=== PATIENT | male | born 1975 | race Caucasian/White ===

== ENCOUNTER 2019-10-14 19:36 | Emergency (ER) | payer SELFPAY ==
--- NOTE | ~2019-10-14 | XR_ITS ---
XR hand LT min 3V, XR wrist RT min 3V 10/14/2019 20:31 Indication: Left hand and right wrist pain after dog bite Procedure: 3 views left hand the 4 views right wrist Comparison: No prior studies for comparison. Findings: There is an old deformity of the left fifth distal phalanx. There is suggestion of soft tis nora laceration overlying the left first distal phalanx with small foreign body at the base of the dis wade phalanx. No acute fracture or traumatic malalignment. Scaphoid intact. Impression: 1: Tiny foreign body in the soft tissues overlying the left first distal phalanx. 2: No acute fracture. Reviewed, dictated and finalized at location A. Impression: 1: Tiny foreign body in the soft tissues overlying the left first distal phalan x. 2: No acute fracture. Impression: 1: Tiny foreign body in the soft tissues overlying the left first distal phalan x. 2: No acute fracture.
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
[2019-10-14 19:39] VITALS: BP 150/82; PULSE 96; RESP 20; TEMP 36.4; O2SAT 96
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
[2019-10-14 20:50] LABS: Basophils Absolute Auto 0.1 K/mm3 (0.0-0.1); Basophils Percent Auto 0.4 % (0.2-1.2); Eosinophils Absolute Auto 0.3 K/mm3 (0-0.3); Eosinophils Percent Auto 2.2 % (0-4.4); Hematocrit 42.1 % (42.0-52.0); Hemoglobin 13.8 g/dL (14.0-18.0); Immature Granulocyte Absolute 0.03 K/mm3 (0.00-0.031); Immature Granulocyte Percent A 0.3 % (0-0.5); Lymphocytes Absolute Auto 3.46 K/mm3 (0.9-3.2); Lymphocytes Percent Auto 30.9 % (18.3-44.2); Mean Corpuscular HGB Conc 32.8 g/dl (32-36); Mean Corpuscular Hemoglobin 29.2 pg (26-34); Mean Corpuscular Volume 89.2 fl (80-100); Mean Platelet Volume 9.2 fl (7.4-10.4); Monocytes Absolute Auto 1.1 K/mm3 (0.1-0.6); Monocytes Percent Auto 9.7 % (2.6-8.5); Neutrophils Absolute Auto 6.3 K/mm3 (1.3-6.7); Neutrophils Percent Auto 56.5 % (45.5-73.1); Platelet Count Result 285 k/mm3 (150-375); Red Blood Count 4.72 M/mm3 (4.6-6.20); Red Cell Distribution Width 12.3 % (11.5-14.5); White Blood Count 11.2 K/mm3 (4.5-10.0)
[2019-10-14 21:02] LABS: Blood Urea Nitrogen 15 mg/dL (9-20); Calcium 8.7 mg/dL (8.4-10.2); Carbon Dioxide 31 mmol/L (22-30); Chloride 102 mmol/L (98-107); Estimated CRCL calculation 78 ml/min; Estimated Glomerular Filt Rate > 60; Glucose 96 mg/dL (75-110); Sodium 139 mmol/L (137-145)
[2019-10-14] MEDS: MORPHINE SULFATE 4 MG/ML INJ IV PUSH (21:02)
[2019-10-14 21:04] VITALS: BP 124/83; PULSE 89; RESP 20; O2SAT 100
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
[2019-10-14 21:30] VITALS: BP 124/83; PULSE 83; O2SAT 95
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
--- NOTE | 2019-10-14 22:19 | PC.NURSE ---
Pt has lacerations and wounds in multiple area around both lowers arms and around right wrist, left thumb has lacerations. right eye is black.
[2019-10-14 22:33] VITALS: O2SAT 98
== END 2019-10-14 22:07 | disposition home or self-care (01) ==
PROVIDERS: Emergency Provider Emergency Medicine
DX: S41.151A Open bite of right upper arm, initial encounter (principal); S41.152A Open bite of left upper arm, initial encounter; S00.11XA Contusion of right eyelid and periocular area, initial encounter; Y35.813A Legal intervention involving manhandling, suspect injured, initial encounter; W54.0XXA Bitten by dog, initial encounter
CPT/HCPCS: 36415; 70486; 73110; 73130; 80048; 85025; 96374; 99284; J2270

== ENCOUNTER 2020-12-17 22:54 | Emergency (ER) | payer OTHER, SELFPAY ==
[2020-12-17 23:00] VITALS: BP 156/100; PULSE 97; RESP 20; TEMP 36.7; O2SAT 98
[2020-12-18] MEDS: CLINDAMYCIN 600 MG/D5W 50 ML 600 MG/50 ML PIGGYBACK 100 MG IVPB (00:23)
--- NOTE | 2020-12-18 00:24 | ED.GENADULT ---
HPI - General Adult General Chief complaint: Skin/Abscess/Foreign Body Stated complaint: spider bite left hand Time Seen by Provider: 12/17/20 23:31 History of Present Illness HPI narrative: Patient 45-year-old gentleman who presents the emergency department with chief complaint of spider bite to left hand. Patient reports that he was bit by a spider several days ago was seen in urgent care and had his prescription sent to a [facility] patient states that every time he is attempted to go to the pharmacy has been closed and has not been taking any antibiotics. The patient denies fever but noticed that his hand has become progressively more swollen and red. Patient states that it is tender to palpation reports no fluctuance to the area denies lymphangitic streaking. Related Data Allergies Allergy/AdvReac Type Severity Reaction Status Date / Time No Known Allergies Allergy Mild Verified 12/17/20 23:06 Review of Systems Review of Systems: Narrative: A 10 system review of systems was completed on the patient and is negative except for what is stated in the HPI. Nursing and ancillary documentation was reviewed. [facility] Past Medical History Medical History No pertinent past medical history Surgical History Surgical History History of tonsillectomy Social History Social History Smoking status: Current every day smoker Gender identity (if verbalized by the patient): Male Exam Narrative: Exam Narrative: GENERAL: Well-appearing, well-nourished, and in no acute distress. HEAD: Normocephalic, atraumatic. EYES: PERRLA and EOMI. ENT: Nares clear, no rhinorrhea or epistaxis. Mucous membranes moist. NECK: Supple. CHEST: Clear to auscultation. No respiratory distress. HEART: Regular rate and rhythm. No murmur heard. Normal peripheral pulses. ABDOMEN: Soft, nontender, nondistended, normal active bowel sounds. EXTREMITIES: Normal range of motion. No edema. There is redness to the dorsum of the left hand there is no swelling of the fingers there is full range of motion of the hand there is no fluctuance present. SKIN: Warm, dry, no rash. NEURO: No focal deficits. Alert and oriented x3. PSYCH: Normal mood and affect. Course Vital Signs Vital signs: Vital Signs Temperature 36.7 C 12/17/20 23:00 Pulse Rate 97 12/17/20 23:00 Respiratory Rate 20 12/17/20 23:00 Blood Pressure 156/100 H 12/17/20 23:00 Pulse Oximetry 98 12/17/20 23:00 Temperature 36.7 C 12/17/20 23:00 Pulse Rate 86 12/18/20 00:47 Respiratory Rate 18 12/18/20 00:47 Blood Pressure 135/98 H 12/18/20 00:47 Pulse Oximetry 98 12/18/20 00:47 Medical Decision Making Vital Signs Vital Signs: Vital Signs Temperature 36.7 C 12/17/20 23:00 Pulse Rate 97 12/17/20 23:00 Respiratory Rate 20 12/17/20 23:00 Blood Pressure 156/100 H 12/17/20 23:00 Pulse Oximetry 98 12/17/20 23:00 Temperature 36.7 C 12/17/20 23:00 Pulse Rate 86 12/18/20 00:47 Respiratory Rate 18 12/18/20 00:47 Blood Pressure 135/98 H 12/18/20 00:47 Pulse Oximetry 98 12/18/20 00:47 Lab Data Result diagrams: 12/18/20 00:15 12/18/20 00:15 Labs: Lab Results 12/18/20 12/18/20 12/18/20 Range/Units 00:15 00:15 00:15 WBC 13.4 H (4.5-10.0) K/mm3 RBC 5.03 (4.6-6.20) M/mm3 Hgb 14.6 (14.0-18.0) g/dL Hct 43.9 (42.0-52.0) % MCV 87.3 (80-100) fl MCH 29.0 (26-34) pg MCHC 33.3 (32-36) g/dl RDW 12.6 (11.5-14.5) % Plt Count 292 (150-375) k/mm3 MPV 9.5 (7.4-10.4) fl Immature Gran % (Auto) 0.4 (0-0.5) % Neut % (Auto) 54.3 (45.5-73.1) % Lymph % (Auto) 33.3 (18.3-44.2) % Howard % (Auto) 9.7 H (2.6-8.5) % Eos % (Auto) 1.9 (0-4.4) % Baso % (Auto) 0.4
[2020-12-18 00:25] LABS: Basophils Absolute Auto 0.1 K/mm3 (0.0-0.1); Basophils Percent Auto 0.4 % (0.2-1.2); Eosinophils Absolute Auto 0.3 K/mm3 (0-0.3); Eosinophils Percent Auto 1.9 % (0-4.4); Hematocrit 43.9 % (42.0-52.0); Hemoglobin 14.6 g/dL (14.0-18.0); Immature Granulocyte Absolute 0.05 K/mm3 (0.00-0.031); Immature Granulocyte Percent A 0.4 % (0-0.5); Lymphocytes Absolute Auto 4.45 K/mm3 (0.9-3.2); Lymphocytes Percent Auto 33.3 % (18.3-44.2); Mean Corpuscular HGB Conc 33.3 g/dl (32-36); Mean Corpuscular Volume 87.3 fl (80-100); Mean Platelet Volume 9.5 fl (7.4-10.4); Monocytes Absolute Auto 1.3 K/mm3 (0.1-0.6); Monocytes Percent Auto 9.7 % (2.6-8.5); Neutrophils Absolute Auto 7.3 K/mm3 (1.3-6.7); Neutrophils Percent Auto 54.3 % (45.5-73.1); Platelet Count Result 292 k/mm3 (150-375); Red Blood Count 5.03 M/mm3 (4.6-6.20); Red Cell Distribution Width 12.6 % (11.5-14.5); White Blood Count 13.4 K/mm3 (4.5-10.0)
[2020-12-18] MEDS: KETOROLAC 30 MG/ML VIAL (*BKC) IV PUSH (00:32)
[2020-12-18 00:34] LABS: Lactic Acid Reflex 0.8 mmol/L (0.7-2.1)
[2020-12-18] MEDS: MORPHINE SULFATE (*CRX) 4 MG/ML INJ IV PUSH (00:34)
[2020-12-18 00:36] LABS: Alanine Aminotransferase 53 U/L (4-50); Albumin Level 4.7 g/dL (3.5-5.1); Alkaline Phosphatase 96 U/L (38-126); Anion Gap 12 mmol/L (8-16); Aspartate Amino Transferase 53 U/L (17-59); Bilirubin,Total 0.6 mg/dL (0.2-1.3); Blood Urea Nitrogen 15 mg/dL (9-20); Calcium 9.9 mg/dL (8.4-10.2); Carbon Dioxide 26 mmol/L (22-30); Chloride 106 mmol/L (98-107); Estimated CRCL calculation 51 ml/min; Estimated Glomerular Filt Rate 44; Glucose 90 mg/dL (75-110); Potassium 4.2 mmol/L (3.4-5.0); Sodium 144 mmol/L (137-145)
[2020-12-18 00:47] VITALS: BP 135/98; PULSE 86; RESP 18; O2SAT 98
[2020-12-18] MEDS: SODIUM CHLORIDE 0.9% IV 1,000 ML 999 ML IV CONT (00:48)
[2020-12-18 01:19] VITALS: BP 145/88; PULSE 83; RESP 18; TEMP 37.1; O2SAT 98
== END 2020-12-18 01:16 | disposition home or self-care (01) ==
PROVIDERS: Emergency Provider Emergency Medicine
DX: L03.114 Cellulitis of left upper limb (principal); F17.200 Nicotine dependence, unspecified, uncomplicated
CPT/HCPCS: 36415; 80053; 83605; 85025; 87040; 96365; 96375; 99284; J1885; J2270; J7030

== ENCOUNTER 2022-08-19 14:00 | Emergency (ER) | payer OTHER, SELFPAY ==
--- NOTE | ~2022-08-19 | XR_ITS ---
XR knee LT 3V DATE: 08/19/2022 14:21 INDICATION: Knee pain and swelling, erythema following a spider bite 3 days ago TECHNIQUE: 3 views COMPARISON: None FINDINGS: Prominent anterior prepatellar soft tissue swelling of the left knee. No fracture or dislocation or joint effusion. No periosteal reaction or bone destruction, radiopaque interarticular loose body or chondrocalcinosis. There is mild loss of height of medial compartment adry int space. IMPRESSION: Prominent prepatellar anterior left knee soft tissue swelling Mild loss of height of medial compartment joint space Reviewed, dictated and finalized at location A. [employer]
[2022-08-19 13:56] VITALS: BP 163/90; PULSE 115; RESP 19; TEMP 36.8; O2SAT 100
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
[2022-08-19 14:22] LABS: Basophils Absolute Auto 0.1 K/mm3 (0.0-0.1); Basophils Percent Auto 0.3 % (0.2-1.2); Eosinophils Absolute Auto 0.1 K/mm3 (0-0.3); Eosinophils Percent Auto 0.5 % (0-4.4); Hematocrit 44.1 % (42.0-52.0); Hemoglobin 14.3 g/dL (14.0-18.0); Immature Granulocyte Absolute 0.14 K/mm3 (0.00-0.031); Immature Granulocyte Percent A 0.7 % (0-0.5); Lymphocytes Absolute Auto 2.27 K/mm3 (0.9-3.2); Lymphocytes Percent Auto 10.7 % (18.3-44.2); Mean Corpuscular HGB Conc 32.4 g/dl (32-36); Mean Corpuscular Hemoglobin 29.1 pg (26-34); Mean Corpuscular Volume 89.6 fl (80-100); Mean Platelet Volume 9.4 fl (7.4-10.4); Monocytes Absolute Auto 2.8 K/mm3 (0.1-0.6); Neutrophils Absolute Auto 15.9 K/mm3 (1.3-6.7); Neutrophils Percent Auto 74.8 % (45.5-73.1); Platelet Count Result 247 k/mm3 (150-375); Red Blood Count 4.92 M/mm3 (4.6-6.20); Red Cell Distribution Width 12.9 % (11.5-14.5); White Blood Count 21.2 K/mm3 (4.5-10.0)
[2022-08-19 14:37] LABS: Alanine Aminotransferase 53 U/L (6-50); Albumin Level 4.5 g/dL (3.5-5.1); Alkaline Phosphatase 107 U/L (38-126); Anion Gap 5 mmol/L (8-16); Aspartate Amino Transferase 37 U/L (17-59); Bilirubin,Total 0.7 mg/dL (0.2-1.3); Blood Urea Nitrogen 22 mg/dL (9-20); CRP 6.5 mg/dL (<1.0); Calcium 8.4 mg/dL (8.4-10.2); Carbon Dioxide 29 mmol/L (22-30); Chloride 101 mmol/L (98-107); Estimated CRCL calculation 78 ml/min; Estimated Glomerular Filt Rate 60; Glucose 111 mg/dL (65-110); Potassium 4.1 mmol/L (3.4-5.0); Sodium 135 mmol/L (137-145)
[2022-08-19 14:57] LABS: Erythrocyte Sedimentation Rate 15 mm/hr (0-20)
[2022-08-19 15:10] VITALS: BP 146/98; PULSE 105; RESP 19; O2SAT 99
== END 2022-08-19 15:40 | disposition home or self-care (01) ==
PROVIDERS: Emergency Provider Preventive Medicine Aerospace Medicine
DX: L03.116 Cellulitis of left lower limb (principal); F17.200 Nicotine dependence, unspecified, uncomplicated
CPT/HCPCS: 36415; 73562; 80053; 85025; 85652; 86140; 96365; 96375; 99284; J0131; J0690